=== PATIENT | female | born 1945 | race Caucasian/White ===

== ENCOUNTER 2020-01-22 16:29 | Observation (INO) ==
[2020-01-22 17:02] LABS: Basophils # 0.1 K/mcL (0.0-0.2); Basophils % 0.9 %; Eosinophils # 0.4 K/mcL (0.0-0.6); Eosinophils % 2.8 %; Hematocrit 44.3 % (35.3-44.9); Hemoglobin 14.3 g/dL (11.5-15.4); Immature Granulocytes % 0.4 % (0-4); Lymphocytes # 3.2 K/mcL (0.6-4.6); Lymphocytes % 24.6 %; Mean Corpuscular HGB Conc 32.3 g/dL (31.6-35.5); Mean Corpuscular Volume 89.9 fL (83.0-100.0); Mean Platelet Volume 9.7 fL (9.4-12.4); Monocytes # 1.3 K/mcL (0.0-1.3); Monocytes % 9.9 %; Platelet Count 452 K/mcL (140-400); Red Blood Count 4.93 M/mcL (3.82-4.97); Red Cell Distribution Width 13.9 % (11.5-14.5); Segmented Neutrophils % 61.4 %
[2020-01-22 17:23] LABS: BUN/Creatinine Ratio 20 (6-26); Blood Urea Nitrogen 18 mg/dL (8-23); Calcium 9.4 mg/dL (8.6-10.3); Carbon Dioxide 26 mEq/L (23-29); Chloride 104 mEq/L (98-107); Glucose 111 mg/dL (70-105); Lipase 27 Units/L (11-82); Osmolality,Calculated 291 (280-300); Potassium 3.1 mEq/L (3.5-5.1); Sodium 139 mEq/L (136-145); Troponin I < 0.03 ng/mL (< 0.04); eGFR For African Americans > 60 (> 60); eGFR For Non-African Americans > 60 (> 60)
[2020-01-22 17:28] LABS: INR 0.9; Prothrombin Time 9.7 Seconds (9.4-12.1)
[2020-01-22 17:38] LABS: Magnesium 1.9 mg/dL (1.6-2.6)
[2020-01-22] MEDS ORDERED: *HR* Promethazine 25 MG/ML VIAL IVP PRN (17:59)
[2020-01-22 18:36] LABS: Bacteria,Urine Few per hpf (None-Few); Bilirubin,Urine Negative (Negative); Blood,Urine Negative (Negative); Clarity,Urine Clear (Clear); Color,Urine Light-Yellow (Yellow); Glucose,Urine (UA) Normal (Normal); Hyaline Casts,Urine Few per lpf (None Seen); Ketones,Urine Negative (Negative); Leukocyte Esterase,Urine Moderate (Negative); Mucus,Urine Few per lpf (None-Few); Nitrite,Urine Negative (Negative); Protein,Urine Negative (Neg-Trace); RBC,Urine 0-3 per hpf (0-3); Specific Gravity,Urine 1.014 (1.010-1.025); Squamous Epithelial Cell,Urine Few per hpf (None-Few); Urobilinogen,Urine Normal (Normal); WBC,Urine 15-30 per hpf (0-3)
[2020-01-22] MEDS ORDERED: Ringers Solution, Lactated 1,000 ML IVC ONE ×2 (19:07→19:09)
[2020-01-22] MEDS ORDERED: clonazePAM 0.5 MG TABLET PO PRN (19:08)
[2020-01-22] MEDS ORDERED: Metoprolol XL (24 HR) Succ 25 MG TAB.ER.24H PO SCH (19:15)
[2020-01-22] MEDS ORDERED: cefTRIAXone 1,000 MG in Water for inj. (sterile) 10 ML IVP SCH (20:00)
[2020-01-23 01:13] LABS: Hematocrit 38.7 % (35.3-44.9); Hemoglobin 12.2 g/dL (11.5-15.4); Mean Corpuscular HGB Conc 31.5 g/dL (31.6-35.5); Mean Corpuscular Hemoglobin 28.8 pg (28.0-33.3); Mean Corpuscular Volume 91.5 fL (83.0-100.0); Platelet Count 372 K/mcL (140-400); Red Blood Count 4.23 M/mcL (3.82-4.97); White Blood Count 7.6 K/mcL (4.3-11.1)
[2020-01-23 01:41] LABS: BUN/Creatinine Ratio 19 (6-26); Blood Urea Nitrogen 16 mg/dL (8-23); Calcium 9.1 mg/dL (8.6-10.3); Carbon Dioxide 26 mEq/L (23-29); Chloride 107 mEq/L (98-107); Glucose 117 mg/dL (70-105); Magnesium 1.7 mg/dL (1.6-2.6); Osmolality,Calculated 292 (280-300); Potassium 4.8 mEq/L (3.5-5.1); Sodium 140 mEq/L (136-145); eGFR For African Americans > 60 (> 60); eGFR For Non-African Americans > 60 (> 60)
[2020-01-23] MEDS ORDERED: *HR* Enoxaparin 40 MG/0.4 ML SYRINGE SQ SCH (06:00)
[2020-01-23] MEDS ORDERED: Perflutren Lipid Microsphere 1.3 ML in 0.9 % Sodium Chloride 8.7 ML IVP PRN (08:33)
[2020-01-23] MEDS ORDERED: amLODIPine 5 MG TABLET PO SCH (09:00)
[2020-01-23] MEDS ORDERED: hydroCHLOROthiazide 25 MG TABLET PO SCH (09:00)
[2020-01-23] MEDS ORDERED: Regadenoson 0.4 MG/5 ML SYRINGE IVP ONE (10:39)
[2020-01-23] MEDS ORDERED: Metoprolol XL (24 HR) Succ 50 MG TAB.ER.24H PO SCH (13:45)
[2020-01-23 13:57] VITALS: BP 137/78
== END 2020-01-23 17:14 | disposition home or self-care (01) ==
LOC: EMEROOARM 16:29 → 3BNU 16:29 → SUATTDRO 18:19 → 3BNU 18:48
PROVIDERS: ADMIT Internal Medicine; ATTEND Internal Medicine

== ENCOUNTER 2020-03-31 15:30 | Observation (INO) ==
[2020-03-31] MEDS ORDERED: 0.9 % Sodium Chloride 1,000 ML IVC ONE (15:47)
[2020-03-31] MEDS ORDERED: DilTIAZem 50 MG/50 ML IV.SOLN IVC SCH (16:00)
[2020-03-31 16:32] LABS: Basophils # 0.1 K/mcL (0.0-0.2); Basophils % 0.8 %; Eosinophils # 0.2 K/mcL (0.0-0.6); Eosinophils % 1.6 %; Hemoglobin 15.3 g/dL (11.5-15.4); Immature Granulocytes % 0.5 % (0-4); Lymphocytes # 2.1 K/mcL (0.6-4.6); Lymphocytes % 16.9 %; Mean Corpuscular HGB Conc 32.6 g/dL (31.6-35.5); Mean Corpuscular Hemoglobin 29.3 pg (28.0-33.3); Mean Platelet Volume 10.1 fL (9.4-12.4); Monocytes # 0.9 K/mcL (0.0-1.3); Monocytes % 7.4 %; Neutrophils # 8.9 K/mcL (1.6-8.9); Platelet Count 399 K/mcL (140-400); Red Blood Count 5.22 M/mcL (3.82-4.97); Red Cell Distribution Width 13.9 % (11.5-14.5); Segmented Neutrophils % 72.8 %; White Blood Count 12.2 K/mcL (4.3-11.1)
[2020-03-31 16:37] LABS: INR 0.9; Prothrombin Time 10.5 Seconds (9.4-12.1)
[2020-03-31 16:49] LABS: Alanine Aminotransferase 15 Units/L (7-52); Albumin 4.8 g/dL (3.5-5.7); Albumin/Globulin Ratio 1.7 (1.1-2.2); Alkaline Phosphatase 78 Units/L (34-104); Aspartate Amino Transferase 15 Units/L (13-39); BUN/Creatinine Ratio 22 (6-26); Bilirubin,Total 0.6 mg/dL (0.3-1.0); Blood Urea Nitrogen 19 mg/dL (8-23); Carbon Dioxide 25 mEq/L (23-29); Chloride 100 mEq/L (98-107); Globulin 2.8 g/dL (2.4-3.5); Glucose 127 mg/dL (70-105); Magnesium 1.8 mg/dL (1.6-2.6); Osmolality,Calculated 288 (280-300); Potassium 3.5 mEq/L (3.5-5.1); Sodium 137 mEq/L (136-145); Total Protein 7.6 g/dL (6.4-8.9); Troponin I < 0.03 ng/mL (< 0.04); eGFR For African Americans > 60 (> 60); eGFR For Non-African Americans > 60 (> 60)
[2020-03-31 17:02] LABS: Thyroid Stimulating Hormone 3.719 mcIU/mL (0.340-5.600)
[2020-03-31] MEDS ORDERED: MOM Conc 10 ML UD.LIQ PO PRN (17:25)
[2020-03-31] MEDS ORDERED: Acetaminophen 325 MG TABLET PO PRN (17:25)
[2020-03-31] MEDS ORDERED: Ondansetron ODT 4 MG TAB.RAPDIS SL PRN (17:25)
[2020-03-31] MEDS ORDERED: Naloxone 0.4 MG/ML INJ IVP PRN (17:25)
[2020-03-31] MEDS ORDERED: Mag Hydrox/Al Hydrox/Simeth 30 ML UDC PO PRN (17:25)
[2020-03-31] MEDS ORDERED: clonazePAM 0.5 MG TABLET PO PRN (17:27)
[2020-03-31] MEDS ORDERED: Metoprolol XL (24 HR) Succ 50 MG TAB.ER.24H PO SCH (18:30)
[2020-03-31] MEDS ORDERED: Magnesium Sulfate 1 GM/102 ML PIGGYBACK IVPB ONE (18:41)
[2020-03-31] MEDS: *HR* Enoxaparin 80 MG/0.8 ML SYRINGE SQ SCH (19:39)
[2020-04-01 01:12] LABS: Hematocrit 39.7 % (35.3-44.9); Mean Corpuscular HGB Conc 32.2 g/dL (31.6-35.5); Mean Corpuscular Hemoglobin 29.3 pg (28.0-33.3); Mean Corpuscular Volume 90.8 fL (83.0-100.0); Platelet Count 370 K/mcL (140-400); Red Blood Count 4.37 M/mcL (3.82-4.97); Red Cell Distribution Width 14.1 % (11.5-14.5); White Blood Count 9.3 K/mcL (4.3-11.1)
[2020-04-01 01:14] LABS: Hemoglobin 12.8 g/dL (11.5-15.4)
[2020-04-01 01:31] LABS: BUN/Creatinine Ratio 22 (6-26); Blood Urea Nitrogen 17 mg/dL (8-23); Carbon Dioxide 26 mEq/L (23-29); Chloride 106 mEq/L (98-107); Glucose 119 mg/dL (70-105); Magnesium 2.2 mg/dL (1.6-2.6); Osmolality,Calculated 289 (280-300); Potassium 4.2 mEq/L (3.5-5.1); Sodium 138 mEq/L (136-145); eGFR For African Americans > 60 (> 60); eGFR For Non-African Americans > 60 (> 60)
[2020-04-01] MEDS: *HR* Enoxaparin 80 MG/0.8 ML SYRINGE SQ SCH (05:59)
[2020-04-01 11:34] VITALS: BP 128/69
== END 2020-04-01 16:08 | disposition home or self-care (01) ==
LOC: EMEROOARM 15:30 → 3BNU 15:30 → SUATTDRO 17:13 → 3BNU 18:02
PROVIDERS: ADMIT Pharmacist; ATTEND Internal Medicine

== ENCOUNTER 2021-04-09 13:44 | Observation (INO) ==
[2021-04-09] MEDS ORDERED: 0.9 % Sodium Chloride 1,000 ML IVC ONE (13:55)
[2021-04-09 14:18] LABS: Basophils # 0.1 K/mcL (0.0-0.2); Basophils % 0.8 %; Eosinophils # 0.5 K/mcL (0.0-0.6); Eosinophils % 4.2 %; Hematocrit 46.4 % (35.3-44.9); Hemoglobin 15.2 g/dL (11.5-15.4); Immature Granulocytes % 0.6 % (0-4); Lymphocytes # 1.6 K/mcL (0.6-4.6); Lymphocytes % 14.6 %; Mean Corpuscular HGB Conc 32.8 g/dL (31.6-35.5); Mean Corpuscular Hemoglobin 30.1 pg (28.0-33.3); Mean Corpuscular Volume 91.9 fL (83.0-100.0); Mean Platelet Volume 10.1 fL (9.4-12.4); Monocytes # 0.9 K/mcL (0.0-1.3); Monocytes % 7.7 %; Platelet Count 342 K/mcL (140-400); Red Blood Count 5.05 M/mcL (3.82-4.97); Red Cell Distribution Width 14.2 % (11.5-14.5); Segmented Neutrophils % 72.1 %; White Blood Count 11.2 K/mcL (4.3-11.1)
[2021-04-09 14:27] LABS: INR 1.1; Prothrombin Time 12.7 Seconds (9.4-12.1)
[2021-04-09 14:39] LABS: BUN/Creatinine Ratio 21 (6-26); Blood Urea Nitrogen 21 mg/dL (8-23); Calcium 9.3 mg/dL (8.6-10.3); Carbon Dioxide 25 mEq/L (23-29); Chloride 98 mEq/L (98-107); Glucose 144 mg/dL (70-105); Osmolality,Calculated 288 (280-300); Potassium 3.5 mEq/L (3.5-5.1); Sodium 136 mEq/L (136-145); eGFR For African Americans > 60 (> 60); eGFR For Non-African Americans 53 (> 60)
[2021-04-09 14:40] LABS: Troponin I < 0.03 ng/mL (< 0.04)
[2021-04-09] MEDS: DilTIAZem 50 MG/50 ML IV.SOLN IVC SCH ×2 (14:42→17:51)
[2021-04-09 14:55] LABS: Thyroid Stimulating Hormone 4.579 mcIU/mL (0.340-5.600)
[2021-04-09] MEDS ORDERED: *HR* Metoprolol 5 MG/5 ML VIAL IVP ONE ×2 (15:03→17:11)
[2021-04-09] MEDS ORDERED: Naloxone 0.4 MG/ML INJ IVP PRN (15:56)
[2021-04-09] MEDS ORDERED: Metoprolol XL (24 HR) Succ 50 MG TAB.ER.24H PO SCH (17:30)
[2021-04-09] MEDS: Apixaban 5 MG TABLET PO SCH (21:27)
[2021-04-10 01:22] LABS: Basophils # 0.1 K/mcL (0.0-0.2); Basophils % 0.8 %; Eosinophils # 0.4 K/mcL (0.0-0.6); Eosinophils % 5.2 %; Hematocrit 40.2 % (35.3-44.9); Immature Granulocytes % 0.8 % (0-4); Lymphocytes # 1.6 K/mcL (0.6-4.6); Lymphocytes % 19.2 %; Mean Corpuscular HGB Conc 32.3 g/dL (31.6-35.5); Mean Corpuscular Hemoglobin 29.8 pg (28.0-33.3); Mean Corpuscular Volume 92.2 fL (83.0-100.0); Mean Platelet Volume 9.6 fL (9.4-12.4); Monocytes # 0.8 K/mcL (0.0-1.3); Neutrophils # 5.3 K/mcL (1.6-8.9); Platelet Count 281 K/mcL (140-400); Red Blood Count 4.36 M/mcL (3.82-4.97); Red Cell Distribution Width 14.3 % (11.5-14.5); White Blood Count 8.3 K/mcL (4.3-11.1)
[2021-04-10 01:40] LABS: BUN/Creatinine Ratio 23 (6-26); Blood Urea Nitrogen 19 mg/dL (8-23); Calcium 8.6 mg/dL (8.6-10.3); Carbon Dioxide 23 mEq/L (23-29); Chloride 106 mEq/L (98-107); Glucose 113 mg/dL (70-105); Osmolality,Calculated 287 (280-300); Potassium 3.7 mEq/L (3.5-5.1); Sodium 137 mEq/L (136-145); eGFR For African Americans > 60 (> 60); eGFR For Non-African Americans > 60 (> 60)
[2021-04-10 03:39] VITALS: O2SAT 95
[2021-04-10 07:07] VITALS: BP 118/71; PULSE 56; TEMP 98.2
[2021-04-10] MEDS ORDERED: Metoprolol XL (24 HR) Succ 50 MG TAB.ER.24H PO SCH (09:00)
[2021-04-10] MEDS: Apixaban 5 MG TABLET PO SCH (09:00)
== END 2021-04-10 11:15 | disposition home or self-care (01) ==
LOC: 3ANU 13:44 → EMEROOARM 13:44 → 3ANU 16:19
PROVIDERS: ADMIT Student in an Organized Health Care Education/Training Program; ATTEND Student in an Organized Health Care Education/Training Program